=== PATIENT | female | born 1950 | race Caucasian/White ===

== ENCOUNTER → 2019-03-04 10:54 | Outpatient (BNVA) | payer MEDICARE, OTHER, SELFPAY | PROVIDERS: PCP Nurse Practitioner Family; Visit Provider Internal Medicine Rheumatology | DX: M05.9 Rheumatoid arthritis with rheumatoid factor, unspecified (principal); Z79.899 Other long term (current) drug therapy; M85.80 Other specified disorders of bone density and structure, unspecified site | CPT/HCPCS: 36415; 80076; 82565; 85025; 85651; 86140; 99214 ==

== ENCOUNTER → 2019-05-05 10:28 | Outpatient (BNVA) | payer MEDICARE, OTHER, SELFPAY | PROVIDERS: PCP Nurse Practitioner Family; Visit Provider Internal Medicine Rheumatology | DX: M05.9 Rheumatoid arthritis with rheumatoid factor, unspecified (principal); Z79.899 Other long term (current) drug therapy; Z79.52 Long term (current) use of systemic steroids; M06.9 Rheumatoid arthritis, unspecified | CPT/HCPCS: 36415; 80076; 82565; 85025; 85651; 86140; 99214 ==

== ENCOUNTER → 2019-05-05 11:46 | Outpatient (BNVA) | payer MEDICARE, OTHER, SELFPAY | PROVIDERS: PCP Nurse Practitioner Family; Visit Provider Internal Medicine Rheumatology | DX: Z79.899 Other long term (current) drug therapy (principal); M06.9 Rheumatoid arthritis, unspecified; M05.9 Rheumatoid arthritis with rheumatoid factor, unspecified | CPT/HCPCS: 85025 ==

== ENCOUNTER → 2019-08-06 08:53 | Outpatient (BNVA) | payer MEDICARE, OTHER, SELFPAY | PROVIDERS: PCP Nurse Practitioner Family; Visit Provider Internal Medicine Rheumatology | DX: Z79.899 Other long term (current) drug therapy (principal) | CPT/HCPCS: 36415; 80076; 82565; 85025; 85651; 86140 ==

== ENCOUNTER → 2019-08-12 13:13 | Outpatient (BNVA) | payer MEDICARE, OTHER, SELFPAY | PROVIDERS: PCP Nurse Practitioner Family; Visit Provider Internal Medicine Rheumatology | DX: M05.79 Rheumatoid arthritis with rheumatoid factor of multiple sites without organ or systems involvement (principal); M85.80 Other specified disorders of bone density and structure, unspecified site; Z79.899 Other long term (current) drug therapy | CPT/HCPCS: 99214 ==

== ENCOUNTER → 2019-12-09 09:45 | Outpatient (BNVA) | payer MEDICARE, OTHER, SELFPAY | PROVIDERS: PCP Registered Nurse | DX: Z79.899 Other long term (current) drug therapy (principal) | CPT/HCPCS: 36415; 80076; 82565; 85025; 85651; 86140 ==

== ENCOUNTER → 2020-01-11 15:22 | Outpatient (BNVA) | payer MEDICARE, SELFPAY | PROVIDERS: PCP Registered Nurse; Visit Provider Internal Medicine Rheumatology | DX: M05.79 Rheumatoid arthritis with rheumatoid factor of multiple sites without organ or systems involvement (principal); M85.80 Other specified disorders of bone density and structure, unspecified site; Z87.891 Personal history of nicotine dependence; Z79.899 Other long term (current) drug therapy | CPT/HCPCS: 99214 ==

== ENCOUNTER → 2020-05-18 12:55 | Outpatient (BNVA) | payer MEDICARE, SELFPAY | PROVIDERS: PCP Registered Nurse; Visit Provider Internal Medicine Rheumatology | DX: M05.79 Rheumatoid arthritis with rheumatoid factor of multiple sites without organ or systems involvement (principal); Z79.899 Other long term (current) drug therapy | CPT/HCPCS: 36415; 80076; 82565; 85025; 86140 ==

== ENCOUNTER → 2020-05-25 13:47 | Outpatient (BNVA) | payer MEDICARE, SELFPAY | PROVIDERS: PCP Registered Nurse; Visit Provider Internal Medicine Rheumatology | DX: M05.79 Rheumatoid arthritis with rheumatoid factor of multiple sites without organ or systems involvement (principal); Z79.899 Other long term (current) drug therapy; M85.80 Other specified disorders of bone density and structure, unspecified site; B02.9 Zoster without complications; Z87.891 Personal history of nicotine dependence | CPT/HCPCS: 99214 ==

== ENCOUNTER → 2020-08-22 10:42 | Outpatient (BNVA) | payer MEDICARE, SELFPAY | PROVIDERS: PCP Registered Nurse; Visit Provider Internal Medicine Rheumatology | DX: Z79.899 Other long term (current) drug therapy (principal); M05.79 Rheumatoid arthritis with rheumatoid factor of multiple sites without organ or systems involvement | CPT/HCPCS: 36415; 80076; 82565; 85025; 86140 ==

== ENCOUNTER 2020-09-01 10:37 | Outpatient (CLI) | payer MEDICARE, SELFPAY ==
--- NOTE | 2020-09-01 10:44 | USCV_ITS ---
Nany Wilhelm Age: 70 Gender: F : 1950 Exam Date: 09/01/2020 10:58 Ordering Phys: Eliane Damon CONTRACT ADMINISTRATOR Technologist: Elizabeth Tapia [place] [facility] [place]: acute embolism and thrombosis, unspecified HISTORY: History LLE DVT 2014. Patient has been on Eloquist since 2014. LLE pain in area of popliteal fossa PROCEDURES: Venous duplex imaging was performed in only the left lower extremity. In addition, the posterior tibial and peroneal trunk were evaluated. On the left side, the common femoral, superficial femoral, profunda femoral, popliteal, posterior tibial, greater saphenous veins, and the peroneal trunk were identified and interrogated in the standard fashion. These veins were found to be easily compressible with spontaneous blood flow. FINDINGS: No DVT or superficial thrombus in LLE. A cystic - like structure is seen in the left medial popliteal fossa area with hyperochic strands within. No color flow seen in structure. Collection measures 2.5 cm. CONCLUSIONS No DVT left lower extremity. Left popliteal fossa Villanueva's cyst. Dr. Jennifer Russ DO (Electronically Signed) Final Date: 01 September 2020 11:37 S
== END 2020-09-01 10:38 | disposition home or self-care (01) ==
PROVIDERS: PCP Registered Nurse; Visit Provider Registered Nurse
DX: M05.79 Rheumatoid arthritis with rheumatoid factor of multiple sites without organ or systems involvement (principal); M85.80 Other specified disorders of bone density and structure, unspecified site; M71.22 Synovial cyst of popliteal space [Baker], left knee; Z79.899 Other long term (current) drug therapy; Z71.89 Other specified counseling; I82.409 Acute embolism and thrombosis of unspecified deep veins of unspecified lower extremity
CPT/HCPCS: 20610; 93971; 99214; J1030

== ENCOUNTER → 2020-12-09 10:43 | Outpatient (BNVA) | payer MEDICARE, OTHER, SELFPAY | PROVIDERS: PCP Registered Nurse; Visit Provider Internal Medicine Rheumatology | DX: M05.79 Rheumatoid arthritis with rheumatoid factor of multiple sites without organ or systems involvement (principal); Z79.899 Other long term (current) drug therapy | CPT/HCPCS: 80076; 82565; 85025; 86140 ==

== ENCOUNTER → 2020-12-21 12:56 | Outpatient (BNVA) | payer MEDICARE, OTHER, SELFPAY | PROVIDERS: PCP Registered Nurse; Visit Provider Internal Medicine Rheumatology | DX: M05.79 Rheumatoid arthritis with rheumatoid factor of multiple sites without organ or systems involvement (principal); M85.80 Other specified disorders of bone density and structure, unspecified site; Z79.899 Other long term (current) drug therapy; Z79.52 Long term (current) use of systemic steroids; M71.20 Synovial cyst of popliteal space [Baker], unspecified knee; Z71.89 Other specified counseling | CPT/HCPCS: 99214 ==

== ENCOUNTER 2021-06-22 12:04 | Outpatient (CLI) | payer MEDICARE, OTHER, SELFPAY ==
[2021-06-22 13:21] LABS: Basophils % 0.6 %; Eosinophils # 0.2 10^3/uL (0.0-0.8); Hematocrit 44.7 % (37.0-47.0); Hemoglobin 14.4 g/dL (11.5-15.3); Lymphocytes # 2.4 10^3/uL (0.8-4.8); Lymphocytes % 34.5 %; Mean Corpuscular HGB Conc 32.2 g/dL (30.0-36.0); Mean Corpuscular Hemoglobin 30.1 pg (28.0-34.0); Mean Corpuscular Volume 93.5 fl (81-99); Mean Platelet Volume 10.6 fL (7.4-10.4); Monocytes # 0.6 10^3/uL (0.2-0.9); Monocytes % 8.5 %; Neutrophils # 3.78 10^3/uL (1.8-7.7); Neutrophils % 53.3 %; Nucleated Red Blood Cells % 0 %; Platelet Count 258 10^3/cmm (130-400); Red Blood Count 4.78 10^6/uL (4.1-5.3); Red Cell Distribution Width 14.4 % (12.1-15.1); White Blood Count 7.1 10^3/uL (4.0-10.0)
[2021-06-22 13:36] LABS: Alanine Aminotransferase 12 U/L (0-33); Alkaline Phosphatase 85 IU/L (35-105); Aspartate Amino Transferase 23 U/L (0-32); C Reactive Protein 3.6 mg/L (0.0-4.9); Globulin 3.9 g/dL (1.3-4.6); Glomerular Filtration Rate 71.1 mL/min (90-130); Total Bilirubin 0.2 mg/dL (0.15-1.2); Total Protein 7.9 g/dL (6.6-8.7)
== END 2021-06-22 12:05 | disposition home or self-care (01) ==
LOC: LAB 12:09
PROVIDERS: PCP Registered Nurse; Visit Provider Internal Medicine Rheumatology
DX: M05.9 Rheumatoid arthritis with rheumatoid factor, unspecified (principal); Z79.899 Other long term (current) drug therapy; M05.79 Rheumatoid arthritis with rheumatoid factor of multiple sites without organ or systems involvement; M85.80 Other specified disorders of bone density and structure, unspecified site
CPT/HCPCS: 36415; 80076; 82565; 85025; 86140; 99214

== ENCOUNTER 2021-07-17 19:46 | Emergency (ER) | payer MEDICARE, OTHER, SELFPAY ==
[2021-07-17 19:51] VITALS: BP 145/79; PULSE 83; RESP 18; TEMP 36.7; O2SAT 97; BMI 30.1
--- NOTE | 2021-07-17 19:52 | ED_ITS ---
HPI - Extremity Injury (Lower) General: Chief Complaint: Extremity Injury, Lower Stated Complaint: L leg pain. Had blood clots Time Seen by Provider: 07/17/21 19:52 History of Present Illness: 71-year-old female comes in today with complaints of left posterior knee pain with increased pain with standing. Patient reports pain for the last 3 days worse today. Patient has a history of DVT, rheumatoid arthritis, and Villanueva's cyst. Patient appears in mild pain at rest. Patient is unable to bear weight on the knee due to pain. Review of Systems General: Reports: 10 or more systems reviewed and unremarkable except in HPI and below Card: Denies: chest pain Resp: Denies: dyspnea Musc: Reports: extremity pain and joint pain PFSH ED PFSH: Medical History Villanueva's cyst of knee High risk medication use Immunization counseling Rheumatoid arthritis Rheumatoid arthritis with rheumatoid factor Seropositive rheumatoid arthritis Seropositive rheumatoid arthritis of multiple joints Shingles Surgical History History of cholecystectomy Hx of hysterectomy Family History Father Rheumatoid arthritis Grandfather Rheumatoid arthritis Grandmother Rheumatoid arthritis Family/Other Rheumatoid arthritis Denies family history of Diabetes Lupus CAD (coronary artery disease) Family history of premature coronary artery disease Hypertension Stroke Social History Smoking and tobacco status: never smoked Alcohol intake: never History of recent travel: No Physical Exam Const: COMMON NORMALS: alert Neck/C-Spine: COMMON NORMALS: full ROM Resp: COMMON NORMALS: normal respiratory effort Cardio: COMMON NORMALS: regular rate RATE: regular rate Extremity: LEFT LOWER EXTREMITY: Yes knee joint (Posterior tenderness, no redness or swelling) Left knee: Yes inspection, Yes palpation, Yes ROM and Yes neurovascular exam and Yes lower leg (Positive Homans' sign, no swelling or redness) Left lower leg: Yes inspection, Yes palpation and Yes neurovascular exam Neuro: SENSORIUM/ORIENTATION: Yes alert Skin: COMMON NORMALS: no rashes or lesions noted GENERAL SKIN EXAM: no rashes or lesions noted Course Vital Signs: Vital signs: Vital Signs Temperature 98.1 F 07/17/21 20:00 Pulse Rate 83 07/17/21 20:00 Respiratory Rate 16 07/17/21 20:00 Blood Pressure 144/79 07/17/21 20:00 Pulse Oximetry 97 07/17/21 20:00 MDM - Extremity Injury (Lower) Medical Decision Making 71-year-old female comes in today with left knee pain. Patient reports the pain is posteriorly. Pain increases with weightbearing. On exam minimal to no swelling. Normal range of motion with nonweightbearing passive exercise. Pain exacerbates with weightbearing. Distal pulses and sensation are intact. Patient had increased calf pain with Homans' sign. Differential diagnosis includes but not limited to tendinitis, degenerative joint disease, Villanueva's cyst, DVT. Ultrasound of the extremity was negative for DVT. I suspect patient probably has a meniscal injury secondary degenerative joint disease. Recommend follow-up with orthopedics for further evaluation and recommendation of treatment. Patient was recommended continue with acetaminophen ibuprofen for pain and her prescription for hydrocodone for severe pain. Discharge Plan Discharge Patient Disposition: Home Clinical Impression: Posterior left knee pain Condition: Stable Prescriptions: No Action lidocaine 5 % adhesive patch,medicated 3 patch topical DAILY Qty: 15 1RF Rx Instructions: leave on most painful area for up to 12 hrs calcium carbonate [Calcium 600] 600 mg calcium (1,500 mg) tablet 600 mg PO BID 0RF omeprazole 40 mg capsule,delayed release(DR/EC) 40 mg PO DAILY 0RF cholecalciferol (vitamin D3) 50 mcg (2,000 unit) tablet 2,000 unit PO .daily 90 Days Qty: 90 1RF folic acid 1 mg tablet 1 mg PO DAILY Qty: 90 3RF methotrexate sodium 2.5 mg tablet See Rx Instructions PO .every 7 days 30 Days Qty: 35 3RF Rx Instructions: take 7 tabs on same day once a week PO .every 7 days; benzonatate 100 mg capsule 100 mg PO BID PRN (Reason: cough) 7 Days Qty: 14 0RF Xarelto 20 mg tablet See Rx Instructions .ROUTE .COMPLEX Qty: 90 0RF Dose Instruction: TAKE 1 TABLET BY MOUTH DAILY Rx Instructions: TAKE 1 TABLET BY MOUTH DAILY Enbrel SureClick 50 mg/mL (1 mL) pen injector 50 mg SUBCUT Q7D Qty: 4 3RF alendronate 70 mg tablet See Rx Instructions .ROUTE .COMPLEX Qty: 12 0RF Dose Instruction: TAKE 1 TABLET BY MOUTH EVERY 7 DAYS Rx Instructions: TAKE 1 TABLET BY MOUTH EVERY 7 DAYS Discharge Orders: Discharge ED (Routine); Ordered 07/17/21 Ordered By: Galen Cannon Referrals: Eliane Damon FNP [Primary Care Provider] - Discharge Diet: Usual diet Discharge Activity: Increase activity as tolerated Patient Instructions: Knee Pain (ED) Activity Restrictions/Additional Instructions: Continue with routine care. Activity as tolerated. Use walker to assist with ambulation. Return to ER for new concerns. Follow-up with primary care for further instruction. Case management will contact you regarding orthopedic follow-up appointment. Coding Level of Care Code ED Storm Window Installer for Marian Fwd Exam Detailed
--- NOTE | 2021-07-17 19:56 | USR_ITS ---
PROCEDURE INFORMATION: Exam: US Duplex Left Lower Extremity Veins, Limited Exam date and time: 07/17/2021 8:21 PM Age: 71 years old Clinical indication: Pain; Leg, lower; Left; Additional info: R/O dvt, posterior knee pain TECHNIQUE: Imaging protocol: Real-time Duplex ultrasound of the Left Lower Extremity with 2-D black scale, color Doppler flow and spectral waveform analysis with image documentation. Limited exam focused on the left lower extremity veins. COMPARISON: CR (LOW EXM, ) 07/17/2021 8:12 PM FINDINGS: Left deep veins: Unremarkable. The common femoral, femoral, proximal profunda femoral and popliteal veins are patent without thrombus. Normal Doppler waveforms. Normal compressibility and/or augmentation response. Left superficial veins: Unremarkable. Saphenofemoral junction is patent without thrombus. Soft tissues: Unremarkable. US/CV venous duplex [facility] [id number] IMPRESSION: No evidence of deep vein thrombosis.
--- NOTE | 2021-07-17 19:57 | XRR_ITS ---
PROCEDURE INFORMATION: Exam: XR Left Knee Exam date and time: 07/17/2021 8:12 PM Age: 71 years old Clinical indication: Pain; Knee; Left; Additional info: Knee pain TECHNIQUE: Imaging protocol: XR Left knee. Views: 3 views. COMPARISON: CR Foot 3 views, LEFT* [id number] 01/08/2019 2:59 PM FINDINGS: Bones/joints: Asymmetric joint space narrowing at lateral compartment. Small joint effusion. No evident fracture or dislocation. Soft tissues: Normal. XR/XR knee LT 3V* [id number] IMPRESSION: Degenerative joint space narrowing lateral compartment. Small joint effusion.
[2021-07-17 20:00] VITALS: BP 144/79; PULSE 83; RESP 16; TEMP 36.7; O2SAT 97
--- NOTE | 2021-07-20 08:28 | DCPLANNER ---
Addendum entered by Crista Whitehead 07/23/21 09:47: marketing assistant manager was told that patient is being seen in [place]. Original Note: marketing assistant manager had message to schedule a follow up appointment for patient with ortho. marketing assistant manager sent patients information to the front office staff at ortho. Patients information will be printed and reviewed. Clinic will call patient with appointment information.
== END 2021-07-17 21:29 | disposition home or self-care (01) ==
PROVIDERS: Emergency Provider Nurse Practitioner Family; PCP Registered Nurse
DX: M79.605 Pain in left leg (principal); M25.562 Pain in left knee; Z86.718 Personal history of other venous thrombosis and embolism
CPT/HCPCS: 73562; 93971; 99283

== ENCOUNTER → 2021-11-14 09:49 | Outpatient (BNVA) | payer MEDICARE, OTHER, SELFPAY | PROVIDERS: PCP Registered Nurse; Visit Provider Internal Medicine Rheumatology | DX: M05.79 Rheumatoid arthritis with rheumatoid factor of multiple sites without organ or systems involvement (principal); Z79.899 Other long term (current) drug therapy | CPT/HCPCS: 80076; 82565; 85025; 86140 ==

== ENCOUNTER → 2021-11-28 12:49 | Outpatient (BNVA) | payer MEDICARE, OTHER, SELFPAY | PROVIDERS: PCP Registered Nurse; Visit Provider Internal Medicine Rheumatology | DX: M05.79 Rheumatoid arthritis with rheumatoid factor of multiple sites without organ or systems involvement (principal); Z79.899 Other long term (current) drug therapy; M85.80 Other specified disorders of bone density and structure, unspecified site; Z71.89 Other specified counseling; M17.12 Unilateral primary osteoarthritis, left knee; Z92.241 Personal history of systemic steroid therapy | CPT/HCPCS: 20610; 99214; J1030 ==

== ENCOUNTER 2022-01-25 12:25 | Outpatient (CLI) | payer MEDICARE, OTHER, SELFPAY ==
--- NOTE | 2022-01-25 12:33 | MR_ITS ---
WS: [id number] MRI LEFT KNEE HISTORY: UNILATERAL PRIMARY OSTEOARTHRITIS, L KNEE COMPARISON: Radiograph 07/17/2021 Anterior cruciate ligament: Intact. Posterior cruciate ligament: Intact. Medial collateral ligament: Intact. Posterior lateral corner structures: Increased edema within the lateral supporting structures. There is no full-thickness tear. Medial menisci: Intact. Normal signal, size and shape. Lateral meniscus: Anterior and posterior horns are abnormal. There is increased signal throughout the horns consistent with complex tears. The meniscus is extruded laterally and extends just above the joint line adjacent to the lateral hernán ateral ligament. Extensor mechanism: Distal quadriceps tendon and patellar tendons are intact. Fluid and soft tissue: Moderate joint effusion. Mild diffuse soft tissue edema. Moderate-sized Villanueva' s cyst. There is a small cyst extending along the popliteus tendon measuring 9 mm. Moderate-sized lob ulated Villanueva's cyst. There is a separate cystic component extending more medial to the semimembranosu s tendon. This may be an additional component of the Villanueva's cyst or ganglion as it does follow the s emimembranosus tendon. Osseous and articular structures: Patellofemoral compartment: Mild lateral subluxation of the patella with mild diffuse chondromalacia. There is also loss of normal cartilage along the femoral component of the joint spaces. Medial compartment: Mild narrowing of the medial compartment. Moderate thinning and fissuring of cart ilage. No marrow edema. Lateral compartment: Severe narrowing of the lateral compartment with bone upon bone and loss of cart ilage. Extruded meniscus. There is a small amount of edema in the lateral tibial plateau. There are scattered areas of variable signal within the distal femur proximal tibia which need furthe r evaluation. This may be secondary to small bone infarcts or metabolic changes. Due to the extensive nature recommend bone scan imaging to exclude metastatic disease. MR/MR knee LT wo con* [id number] IMPRESSION: 1. Severe lateral joint compartment narrowing with complete loss of cartilage and the extruded meniscus. 2. Complex tears involving the anterior and posterior horns of the lateral men iscus. Lateral meniscus is extruded from the joint line extends cephalad. 3. Large Villanueva's cyst. There is an additional cyst along the semimembranous te ndon which is probably a ganglion. This could be a meniscal cyst or extension o f the Villanueva's cyst. 4. Mild lateral subluxation of patella with diffuse mild chondromalacia. 5. Mild narrowing medial compartment with moderate thinning and fissuring of t he cartilage. 6. Variable signal within the visualized femur and tibia. Recommend bone scan imaging to exclude metastatic bone disease.
== END 2022-01-25 12:26 | disposition home or self-care (01) ==
LOC: RAD 12:26
PROVIDERS: PCP Registered Nurse; Visit Provider Nurse Practitioner Adult Health
DX: M17.12 Unilateral primary osteoarthritis, left knee (principal); S83.272A Complex tear of lateral meniscus, current injury, left knee, initial encounter; M71.22 Synovial cyst of popliteal space [Baker], left knee; S83.012A Lateral subluxation of left patella, initial encounter; X58.XXXA Exposure to other specified factors, initial encounter; M22.42 Chondromalacia patellae, left knee
CPT/HCPCS: 73721

== ENCOUNTER 2022-03-02 11:06 | Outpatient (CLI) | payer MEDICARE, OTHER, SELFPAY ==
[2022-03-02 14:15] LABS: Basophils % 0.4 %; Eosinophils # 0.2 10^3/uL (0.0-0.8); Eosinophils % 2.8 %; Hematocrit 40.6 % (37.0-47.0); Hemoglobin 12.9 g/dL (11.5-15.3); Lymphocytes # 2.1 10^3/uL (0.8-4.8); Mean Corpuscular HGB Conc 31.8 g/dL (30.0-36.0); Mean Corpuscular Hemoglobin 30.4 pg (28.0-34.0); Mean Corpuscular Volume 95.8 fl (81-99); Mean Platelet Volume 10.4 fL (7.4-10.4); Monocytes # 0.5 10^3/uL (0.2-0.9); Monocytes % 7.3 %; Neutrophils # 4.04 10^3/uL (1.8-7.7); Neutrophils % 59.2 %; Nucleated Red Blood Cells % 0 %; Platelet Count 222 10^3/cmm (130-400); Red Blood Count 4.24 10^6/uL (4.1-5.3); Red Cell Distribution Width 14.2 % (12.1-15.1); White Blood Count 6.8 10^3/uL (4.0-10.0)
[2022-03-02 14:40] LABS: Alanine Aminotransferase 7 U/L (0-33); Albumin Level 3.7 g/dL (3.5-5.2); Alkaline Phosphatase 86 U/L (35-105); Aspartate Amino Transferase 14 U/L (0-32); Globulin 3.4 g/dL (1.3-4.6); Glomerular Filtration Rate 98.8 mL/min (90-130); Total Bilirubin 0.2 mg/dL (0.15-1.2); Total Protein 7.1 g/dL (6.6-8.7)
[2022-03-02 14:41] LABS: INR 0.97 (0.8-1.2)
[2022-03-02 14:43] LABS: Partial Thromboplastin Time 26.4 SECONDS (23.9-36.7)
[2022-03-02 14:56] LABS: Immunoglobulin IGG 1249 mg/dL (700-1600); Immunoglobulin IGM 220 mg/dL (40-230)
== END 2022-03-02 11:07 | disposition home or self-care (01) ==
LOC: LAB 11:13
PROVIDERS: PCP Registered Nurse; Visit Provider Internal Medicine Rheumatology
DX: M05.79 Rheumatoid arthritis with rheumatoid factor of multiple sites without organ or systems involvement (principal); Z79.899 Other long term (current) drug therapy
CPT/HCPCS: 36415; 80076; 81241; 82565; 82784; 85025; 85300; 85301; 85303; 85306; 85610; 85613; 85730; 86140

== ENCOUNTER 2022-06-01 12:05 | Outpatient (CLI) | payer MEDICARE, OTHER, SELFPAY ==
[2022-06-01 12:50] LABS: Basophils % 0.2 %; Eosinophils # 0.2 10^3/uL (0.0-0.8); Eosinophils % 1.9 %; Hematocrit 42.5 % (37.0-47.0); Hemoglobin 13.4 g/dL (11.5-15.3); Lymphocytes # 1.9 10^3/uL (0.8-4.8); Mean Corpuscular HGB Conc 31.5 g/dL (30.0-36.0); Mean Corpuscular Hemoglobin 29.7 pg (28.0-34.0); Mean Corpuscular Volume 94.2 fl (81-99); Mean Platelet Volume 9.3 fL (7.4-10.4); Monocytes # 0.4 10^3/uL (0.2-0.9); Monocytes % 3.6 %; Neutrophils # 7.17 10^3/uL (1.8-7.7); Neutrophils % 73.8 %; Nucleated Red Blood Cells % 0 %; Platelet Count 266 10^3/cmm (130-400); Red Blood Count 4.51 10^6/uL (4.1-5.3); Red Cell Distribution Width 14.8 % (12.1-15.1); White Blood Count 9.7 10^3/uL (4.0-10.0)
[2022-06-01 13:10] LABS: Alanine Aminotransferase 9 U/L (0-33); Albumin Level 3.7 g/dL (3.5-5.2); Alkaline Phosphatase 79 U/L (35-105); Aspartate Amino Transferase 18 U/L (0-32); C Reactive Protein 5.8 mg/L (0.0-4.9); Globulin 3.5 g/dL (1.3-4.6); Glomerular Filtration Rate 82.7 mL/min (90-130); Total Bilirubin 0.2 mg/dL (0.15-1.2); Total Protein 7.2 g/dL (6.6-8.7)
== END 2022-06-01 12:06 | disposition home or self-care (01) ==
LOC: LAB 12:28
PROVIDERS: PCP Registered Nurse; Visit Provider Internal Medicine Rheumatology
DX: M05.79 Rheumatoid arthritis with rheumatoid factor of multiple sites without organ or systems involvement (principal); Z79.899 Other long term (current) drug therapy
CPT/HCPCS: 36415; 80076; 82565; 85025; 86140

== ENCOUNTER → 2022-06-12 12:27 | Outpatient (BNVA) | payer MEDICARE, OTHER, SELFPAY | PROVIDERS: PCP Registered Nurse; Visit Provider Internal Medicine Rheumatology | DX: M05.79 Rheumatoid arthritis with rheumatoid factor of multiple sites without organ or systems involvement (principal); Z79.899 Other long term (current) drug therapy; M85.80 Other specified disorders of bone density and structure, unspecified site; Z71.89 Other specified counseling | CPT/HCPCS: 99214 ==

== ENCOUNTER → 2022-09-19 10:21 | Outpatient (BNVA) | payer MEDICARE, OTHER, SELFPAY | PROVIDERS: PCP Registered Nurse; Visit Provider Registered Nurse | DX: Z13.1 Encounter for screening for diabetes mellitus (principal) | CPT/HCPCS: 80053; 80061; 83036; 85025 ==

== ENCOUNTER → 2022-10-09 12:25 | Outpatient (BNVA) | payer MEDICARE, OTHER, SELFPAY | PROVIDERS: PCP Registered Nurse; Visit Provider Internal Medicine Rheumatology | DX: M05.79 Rheumatoid arthritis with rheumatoid factor of multiple sites without organ or systems involvement (principal); Z79.899 Other long term (current) drug therapy; M85.80 Other specified disorders of bone density and structure, unspecified site; Z71.89 Other specified counseling; Z96.652 Presence of left artificial knee joint; Z92.241 Personal history of systemic steroid therapy | CPT/HCPCS: 99214 ==

== ENCOUNTER → 2022-11-01 13:29 | Outpatient (BNVA) | payer MEDICARE, OTHER, SELFPAY | PROVIDERS: Visit Provider Internal Medicine Rheumatology | DX: M05.79 Rheumatoid arthritis with rheumatoid factor of multiple sites without organ or systems involvement (principal); Z79.899 Other long term (current) drug therapy; M85.80 Other specified disorders of bone density and structure, unspecified site; Z71.89 Other specified counseling | CPT/HCPCS: 99214 ==

== ENCOUNTER → 2023-04-09 12:41 | Outpatient (BNVA) | payer MEDICARE, OTHER, SELFPAY | PROVIDERS: PCP Family Medicine; Visit Provider Internal Medicine Rheumatology | DX: M05.79 Rheumatoid arthritis with rheumatoid factor of multiple sites without organ or systems involvement; Z79.899 Other long term (current) drug therapy; M85.80 Other specified disorders of bone density and structure, unspecified site; Z71.89 Other specified counseling | CPT/HCPCS: 36415; 80076; 82565; 85025; 86140; 99214 ==

== ENCOUNTER 2023-04-18 14:45 | Outpatient (CLI) | payer MEDICARE, OTHER, SELFPAY ==
--- NOTE | 2023-04-18 15:00 | XR_ITS ---
WS: [id number] SCREENING DEXA SCAN [email or web address] CLINICAL INFORMATION: M81.0 - Age-related osteoporosis without current patholog... COMPARISON: 2019 FINDINGS: The L1-L4 bone mineral density measures 0.971 g/cm2. This corresponds to a T score score of -1.7 and Z score of -0.5. Left femoral neck bone mineral density measures 0.945 g/cm2. This corresponds to a T score of -0.5 an d Z score of 0.7. Right femoral neck bone mineral density measures 0.999 g/cm2. This corresponds to a T score -0.1of an d Z score of 1.1. Mean femoral neck bone mineral density measures 0.972 g/cm2. This corresponds to a T score of -0.3 an d Z score of 0.9. IMPRESSION: Osteopenia lumbar spine. Normal bone mineralization femoral necks. Patient's FRAX calculated 10 year probability for major osteoporotic fracture is 12.8% and osteoporot ic hip fracture is 2.2%. Bone mineral density in the lumbar spine increased 9.0% Bone mineral density in the femoral necks increased 3.8%
== END 2023-04-18 14:46 | disposition home or self-care (01) ==
LOC: RAD 14:45
PROVIDERS: PCP Family Medicine; Visit Provider Internal Medicine Rheumatology
DX: M81.0 Age-related osteoporosis without current pathological fracture (principal)
CPT/HCPCS: 77080

== ENCOUNTER 2023-05-25 16:55 | Emergency (ER) | payer MEDICARE, OTHER, SELFPAY ==
[2023-05-25 17:00] VITALS: BP 126/66; PULSE 72; RESP 18; TEMP 36.7; O2SAT 98; BMI 29.2
--- NOTE | 2023-05-25 17:18 | USR_ITS ---
PROCEDURE INFORMATION: Exam: US Duplex Right Lower Extremity Veins, Limited Exam date and time: 05/25/2023 5:38 PM Age: 73 years old Clinical indication: Pain; Leg, lower; Right; Additional info: Leg pain TECHNIQUE: Imaging protocol: Real-time duplex ultrasound of the right extremity with 2-D black scale, color Doppler flow and spectral waveform analysis including responses to compression and other maneuvers (when performed) with image documentation. Limited exam was focused on the right lower extremity veins. COMPARISON: No relevant prior studies available. FINDINGS: Right deep veins: Unremarkable. The common femoral, femoral, proximal profunda femoral, popliteal and visualized calf veins are patent without thrombus. Normal Doppler waveforms. Normal compressibility and/or augmentation response. Superficial veins: Greater saphenous vein at the saphenofemoral junction is patent without thrombus. Soft tissues: Unremarkable. US/[place] [id number] IMPRESSION: No sonographic evidence of deep vein thrombosis.
--- NOTE | 2023-05-25 17:24 | W.ED.EXTPRO ---
Documented by User: IVON Rodriguez 05/25/23 19:08 HPI - Extremity Problem General: Chief complaint: Extremity Problem,Nontraumatic Stated complaint: right leg pain Time Seen by Provider: 05/25/23 17:06 Source: patient Mode of arrival: ambulatory Limitations: no limitations History of Present Illness: Patient is a 73-year-old female presenting to the emergency department complaining of atraumatic right leg pain onset this afternoon. Patient notes she was reportedly walking normally when she developed sudden onset of diffuse right leg pain she reports history of DVT in the left leg, but states this feels a little different. She has a history of rheumatoid arthritis and takes methotrexate. She is unable to report to me where the pain is worse, but does state that she feels like it aggregates in the knee occasionally. She notes the pain is constantly worsening and is a sharp 10/10 pain she took Tylenol at home as well as a prednisone, but notes no relief. She denies any swelling, redness, bruising, or any other symptoms. MD Complaint: extremity pain Onset (ago): hour(s) Location: right and lower extremity Severity scale (1-10): 10 Quality: sharp Relieving factors: nothing Exacerbating factors: range of motion, weight bearing and walking Associated symptoms: Deny chest pain, fever(s) or rash Review of Systems General: Reports: 10 or more systems reviewed and unremarkable except in HPI and below Const: Denies: fever(s), chills or fatigue Eyes: Denies: change in vision ENMT: Denies: throat pain, ear or mastoid pain or nasal discharge Card: Denies: chest pain, palpitations, swelling of feet/ankles or lightheadedness Resp: Denies: dyspnea, productive cough or wheezing GI: Denies: abdominal pain, nausea, vomiting, diarrhea or constipation : Denies: flank pain, difficulty voiding, dysuria or urinary frequency Musc: Reports: extremity pain (Right lower extremity); Denies: neck pain, back pain, extremity swelling, joint pain, joint swelling, joint redness or limited range of motion Skin/Breast: Denies: rash Neuro: Denies: headache(s), numbness in extremities or weakness in extremities PFS ED PFSH: Medical History Villanueva's cyst of knee Shingles Immunization counseling Rheumatoid arthritis with rheumatoid factor Seropositive rheumatoid arthritis of multiple joints Seropositive rheumatoid arthritis High risk medication use Rheumatoid arthritis Surgical History Hx of hysterectomy History of cholecystectomy Family History Father Rheumatoid arthritis Grandfather Rheumatoid arthritis Grandmother Rheumatoid arthritis Family/Other Rheumatoid arthritis Denies family history of Diabetes Lupus CAD (coronary artery disease) Family history of premature coronary artery disease Hypertension Stroke Social History Smoking and tobacco/nicotine status: never used tobacco/nicotine Alcohol intake: never Substance/Drug Use: never Physical Exam Const: COMMON NORMALS: no acute distress, patient oriented x3 and no limitations GENERAL APPEARANCE: cooperative, comfortable and well developed ORIENTATION/CONSCIOUSNESS: Yes awake, Yes oriented to person, Yes oriented to place and Yes oriented to time HENMT: COMMON NORMALS: normocephalic, atraumatic and hearing grossly normal bilaterally HEAD & SCALP: normocephalic and atraumatic Eye: COMMON NORMALS: Equal, round and reactive pupils present, EOMs intact bilaterally and conjunctivae normal CONJUNCTIVA: Yes conjunctivae normal PUPIL: Yes Equal, round and reactive pupils present Neck/C-Spine: COMMON NORMALS: full ROM, supple and no JVD Resp: COMMON NORMALS: normal respiratory effort, No retractions, No use of accessory muscles and clear to auscultation bilaterally AUSCULTATION: clear to auscultation bilaterally Cardio: COMMON NORMALS: no JVD, regular rate, regular rhythm, No clicks present (Cardio), No murmurs present (Cardio) and No rub (Cardio) RATE: regular rate RHYTHM: regular rhythm Extremity: COMMON NORMALS: normal to inspection, full ROM and capillary refill normal NARRATIVE EXTREMITY EXAM: No edema noted. No erythema or bruising. Diffusely tender to palpation about the right thigh, knee, anteromedial mendes, and ankle. Negative Homans. No calf tenderness. No palpable cord. Distal pulses intact bilaterally. Neuro: COMMON NORMALS: patient oriented x3, moves all extremities, no focal motor deficits and no sensory deficits noted SENSORIUM/ORIENTATION: Yes oriented to person, Yes oriented to place and Yes oriented to time Psych: COMMON NORMALS: mental status grossly normal and Normal thought process present THOUGHT PROCESS: Normal thought process present Skin: COMMON NORMALS: no rashes or lesions noted GENERAL SKIN EXAM: no rashes or lesions noted Course Vital Signs: Vital signs: Vital Signs Temperature 98.1 F 05/25/23 19:13 Pulse Rate 68 05/25/23 19:13 Respiratory Rate 16 05/25/23 19:13 Blood Pressure 125/51 05/25/23 19:13 Pulse Oximetry 98 05/25/23 19:13 Oxygen Delivery Me thod Room Air 05/25/23 17:00 MDM - Extremity (Nontraumatic) Medical Decision Making This patient seen and evaluated in the emergency department today due to sudden onset of nontraumatic right leg pain. On arrival patient complaining of severe pain diffusely throughout the leg, stating it was worse in the knee. Vitals normal. Examination ultimately unremarkable, however she was diffusely tender to palpation of the right knee with proximal and distal extension. No skin changes, calf tenderness, popliteal space tenderness, palpable cord, and a negative Homans' sign. However, I ordered venous ultrasound to rule out DVT as patient noted she had a history, but this was negative. Subsequent x-ray of the knee on the right was also negative. I had previously given the patient a shot of Toradol, and upon recheck she states that she is essentially pain-free. I believe the patient's pain could potentially be due to to a muscle strain, however differential includes ruptured Villanueva's cyst, as she has a history of this on the left side. I will send her home with prescription for Toradol to take by mouth, and informed her that if she continues to have pain she can follow-up with her primary care to schedule an MRI. Return precautions are given and patient agrees with discharge home. Lab Data Radiology Impressions Venous Duplex 05/25/23 17:18 IMPRESSION: No sonographic evidence of deep vein thrombosis. Knee X-Ray 05/25/23 18:01 IMPRESSION: No acute radiographic findings. All radiology interpretation(s) finalized by discharge Discharge Plan Discharge Patient Disposition: Home Clinical Impression: Muscle strain of right knee Qualifiers: Encounter type: initial encounter Qualified Code(s): S86.911A - Strain of unspecified muscle(s) and tendon(s) at lower leg level, right leg, initial encounter Condition: Stable Prescriptions: New ketorolac 10 mg tablet 10 mg PO Q8H PRN (Reason: pain) Qty: 60 0RF No Action omeprazole 40 mg capsule,delayed release(DR/EC) 40 mg PO DAILY folic acid 1 mg tablet 1 mg PO DAILY Qty: 90 3RF diclofenac sodium 1 % gel 2 g topical QID Qty: 100 2RF Rx Instructions: apply to affected area as needed Enbrel 50 mg/mL (1 mL) syringe See Rx Instructions .ROUTE .COMPLEX Qty: 4 3RF Dose Instruction: INJECT 50MG SUBCUTANEOUSLY EVERY SEVEN DAYS Rx Instructions: INJECT 50MG SUBCUTANEOUSLY EVERY SEVEN DAYS aspirin [Adult Aspirin Regimen] 81 mg tablet,delayed release (DR/EC) 81 mg PO DAILY alendronate 70 mg tablet See Rx Instructions .ROUTE .COMPLEX Qty: 12 1RF Dose Instruction: TAKE 1 TABLET BY MOUTH EVERY 7 DAYS Rx Instructions: TAKE 1 TABLET BY MOUTH EVERY 7 DAYS cholecalciferol (vitamin D3) 50 mcg (2,000 unit) tablet 2,000 unit PO .daily 90 Days Qty: 90 1RF Enbrel 50 mg/mL (1 mL) syringe See Rx Instructions .ROUTE .COMPLEX Qty: 4 3RF Dose Instruction: INJECT 50MG SUBCUTANEOUSLY EVERY SEVEN DAYS Rx Instructions: INJECT 50MG SUBCUTANEOUSLY EVERY SEVEN DAYS methotrexate sodium 2.5 mg tablet See Rx Instructions .ROUTE .COMPLEX Qty: 105 0RF Dose Instruction: TAKE 7 TABLETS BY MOUTH ONCE A WEEK Rx Instructions: TAKE 7 TABLETS BY MOUTH ONCE A WEEK Discharge Orders: Discharge ED (Routine); Ordered 05/25/23 Ordered By: Rubio Byrd Referrals: Javy Arguelles [Primary Care Provider] - Discharge Diet: Usual diet Discharge Activity: Increase activity as tolerated Patient Instructions: Knee Pain (ED) Activity Restrictions/Additional Instructions: Toradol as needed for pain. Gentle range of motion exercises. Ice for added relief. If you continue to have pain, follow-up with primary care for potential MRI. Otherwise, return with any new or concerning symptoms. 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 Marian Rodriguez Documented by User: Curt De La Rosa DO 05/31/23 14:15 HPI - Extremity Problem General: Chief complaint: Extremity Problem,Nontraumatic Stated complaint: right leg pain Time Seen by Provider: 05/25/23 17:06 PFSH ED PFSH: Medical History Villanueva's cyst of knee Shingles Immunization counseling Rheumatoid arthritis with rheumatoid factor Seropositive rheumatoid arthritis of multiple joints Seropositive rheumatoid arthritis High risk medication use Rheumatoid arthritis Surgical History Hx of hysterectomy History of cholecystectomy Family History Father Rheumatoid arthritis Grandfather Rheumatoid arthritis Grandmother Rheumatoid arthritis Family/Other Rheumatoid arthritis Denies family history of Diabetes Lupus CAD (coronary artery disease) Family history of premature coronary artery disease Hypertension Stroke Social History Smoking and tobacco/nicotine status: never used tobacco/nicotine Alcohol intake: never Substance/Drug Use: never Course Vital Signs: Vital signs: Vital Signs Temperature 98.1 F 05/25/23 19:13 Pulse Rate 68 05/25/23 19:13 Respiratory Rate 16 05/25/23 19:13 Blood Pressure 125/51 05/25/23 19:13 Pulse Oximetry 98 05/25/23 19:13 Oxygen Delivery Me thod Room Air 05/25/23 17:00 MDM - Extremity (Nontraumatic) Medical Decision Making This patient seen and evaluated in the emergency department today due to sudden onset of nontraumatic right leg pain. On arrival patient complaining of severe pain diffusely throughout the leg, stating it was worse in the knee. Vitals normal. Examination ultimately unremarkable, however she was diffusely tender to palpation of the right knee with proximal and distal extension. No skin changes, calf tenderness, popliteal space tenderness, palpable cord, and a negative Homans' sign. However, I ordered venous ultrasound to rule out DVT as patient noted she had a history, but this was negative. Subsequent x-ray of the knee on the right was also negative. I had previously given the patient a shot of Toradol, and upon recheck she states that she is essentially pain-free. I believe the patient's pain could potentially be due to to a muscle strain, however differential includes ruptured Villanueva's cyst, as she has a history of this on the left side. I will send her home with prescription for Toradol to take by mouth, and informed her that if she continues to have pain she can follow-up with her primary care to schedule an MRI. Return precautions are given and patient agrees with discharge home. Chart reviewed Lab Data Radiology Impressions Venous Duplex 05/25/23 17:18 IMPRESSION: No sonographic evidence of deep vein thrombosis. Knee X-Ray 05/25/23 18:01 IMPRESSION: No acute radiographic findings. Discharge Plan Discharge Patient Disposition: Home Clinical Impression: Muscle strain of right knee Qualifiers: Encounter type: initial encounter Qualified Code(s): S86.911A - Strain of unspecified muscle(s) and tendon(s) at lower leg level, right leg, initial encounter Condition: Stable Prescriptions: New ketorolac 10 mg tablet 10 mg PO Q8H PRN (Reason: pain) Qty: 60 0RF No Action omeprazole 40 mg capsule,delayed release(DR/EC) 40 mg PO DAILY folic acid 1 mg tablet 1 mg PO DAILY Qty: 90 3RF diclofenac sodium 1 % gel 2 g topical QID Qty: 100 2RF Rx Instructions: apply to affected area as needed Enbrel 50 mg/mL (1 mL) syringe See Rx Instructions .ROUTE .COMPLEX Qty: 4 3RF Dose Instruction: INJECT 50MG SUBCUTANEOUSLY EVERY SEVEN DAYS Rx Instructions: INJECT 50MG SUBCUTANEOUSLY EVERY SEVEN DAYS aspirin [Adult Aspirin Regimen] 81 mg tablet,delayed release (DR/EC) 81 mg PO DAILY alendronate 70 mg tablet See Rx Instructions .ROUTE .COMPLEX Qty: 12 1RF Dose Instruction: TAKE 1 TABLET BY MOUTH EVERY 7 DAYS Rx Instructions: TAKE 1 TABLET BY MOUTH EVERY 7 DAYS cholecalciferol (vitamin D3) 50 mcg (2,000 unit) tablet 2,000 unit PO .daily 90 Days Qty: 90 1RF Enbrel 50 mg/mL (1 mL) syringe See Rx Instructions .ROUTE .COMPLEX Qty: 4 3RF Dose Instruction: INJECT 50MG SUBCUTANEOUSLY EVERY SEVEN DAYS Rx Instructions: INJECT 50MG SUBCUTANEOUSLY EVERY SEVEN DAYS methotrexate sodium 2.5 mg tablet See Rx Instructions .ROUTE .COMPLEX Qty: 105 0RF Dose Instruction: TAKE 7 TABLETS BY MOUTH ONCE A WEEK Rx Instructions: TAKE 7 TABLETS BY MOUTH ONCE A WEEK Discharge Orders: Discharge ED (Routine); Ordered 05/25/23 Ordered By: Rubio Byrd Referrals: Javy Arguelles [Primary Care Provider] - Discharge Diet: Usual diet Discharge Activity: Increase activity as tolerated Patient Instructions: Knee Pain (ED) Activity Restrictions/Additional Instructions: Toradol as needed for pain. Gentle range of motion exercises. Ice for added relief. If you continue to have pain, follow-up with primary care for potential MRI. Otherwise, return with any new or concerning symptoms. 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
[2023-05-25] MEDS: ketorolac 60 mg/2 mL INJ IM (17:32)
--- NOTE | 2023-05-25 18:01 | XRR_ITS ---
PROCEDURE INFORMATION: Exam: XR Right Knee Exam date and time: 05/25/2023 6:09 PM Age: 73 years old Clinical indication: Pain; Knee; Right; Additional info: Knee pain TECHNIQUE: Imaging protocol: Radiologic exam of the right knee. Views: 3 views. COMPARISON: [place] [id number] 05/25/2023 5:38 PM FINDINGS: Bones/joints: No radiographic evidence of acute fracture or dislocation. Alignment anatomic. Joint spaces preserved. No significant effusion. Soft tissues: Mild soft tissue swelling. XR/XR knee RT 3V* [id number] IMPRESSION: No acute radiographic findings.
[2023-05-25 19:13] VITALS: BP 125/51; PULSE 68; RESP 16; TEMP 36.7; O2SAT 98
== END 2023-05-25 19:12 | disposition home or self-care (01) ==
PROVIDERS: Emergency Provider Physician Assistant; PCP Family Medicine
DX: S86.911A Strain of unspecified muscle(s) and tendon(s) at lower leg level, right leg, initial encounter (principal); Z79.82 Long term (current) use of aspirin; X58.XXXA Exposure to other specified factors, initial encounter
CPT/HCPCS: 73562; 93971; 96372; 99284; J1885

== ENCOUNTER 2023-08-07 19:14 | Emergency (ER) | payer MEDICARE, OTHER, SELFPAY ==
--- NOTE | 2023-08-07 19:20 | XRR_ITS ---
PROCEDURE INFORMATION: Exam: XR Chest Exam date and time: 08/07/2023 7:53 PM Age: 73 years old Clinical indication: Other: Syncope TECHNIQUE: Imaging protocol: Radiologic exam of the chest. Views: 1 view. COMPARISON: CR XR chest 2V* [id number] 01/08/2019 2:59 PM FINDINGS: Lungs: Unremarkable. No consolidation. Pleural spaces: Unremarkable. No pleural effusion. No pneumothorax. Heart/Mediastinum: Unremarkable. No cardiomegaly. Bones/joints: Unremarkable. XR/XR chest 1V portable [id number] IMPRESSION: No significant findings.
--- NOTE | 2023-08-07 19:21 | ECG_ITS ---
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 Measurements Intervals [place] Rate: 70 P: 63 NM: 175 QRS: 44 QRSD: 94 T: 60 QT: 424 QTc: 458 Interpretive Statements SINUS RHYTHM WITH OCCASIONAL VENTRICULAR PREMATURE COMPLEXES LOW QRS VOLTAGE IN PRECORDIAL LEADS [QRS DEFLECTION < 1.0 mV IN CHEST LEADS] No previous ECG available for comparison Electronically Signed On 08-08-2023 0:02:16 CDT by Phillip Simmons M.D. [email or web address]
[2023-08-07 19:23] VITALS: BP 129/59; PULSE 72; RESP 24; O2SAT 98; BMI 30.4
[2023-08-07 19:37] LABS: Basophils % 0.5 %; Eosinophils # 0.2 10^3/uL (0.0-0.8); Eosinophils % 4.6 %; Hematocrit 34.3 % (36-47); Lymphocytes # 1.5 10^3/uL (0.8-4.8); Lymphocytes % 35.1 %; Mean Corpuscular HGB Conc 32.1 g/dL (30-55); Mean Corpuscular Hemoglobin 28.9 pg (27-33); Mean Platelet Volume 9.9 fL (7.4-10.4); Monocytes # 0.6 10^3/uL (0.2-0.9); Neutrophils # 1.88 10^3/uL (1.8-7.7); Neutrophils % 45.6 %; Nucleated Red Blood Cells % 0 %; Platelet Count 156 10^3/cmm (157-399); Red Blood Count 3.81 10^6/uL (3.85-5.65); Red Cell Distribution Width 16.3 % (12.1-15.1); White Blood Count 4.13 10^3/uL (3.29-11.43)
--- NOTE | 2023-08-07 19:42 | W.ED.SYNCOPE ---
HPI - Syncope General: Chief Complaint: Syncope Stated Complaint: syncope Time Seen by Provider: 08/07/23 19:16 History of Present Illness: 73-year-old female with a history of rheumatoid arthritis who presents the emergency room by ambulance after having a syncopal event. She was at a . She started feeling lightheaded and passed out. She did not hit her head. She says this happens to her quite frequently. She had not had anything to eat today. EMS reports PVCs and a low blood pressure initially. She says she is feeling quite a bit better now. No chest pain. No shortness of breath. She currently has no nausea or vomiting. No abdominal pain. Review of Systems Narrative: Constitutional symptoms: Negative except as documented in HPI. Skin symptoms: Negative except as documented in HPI. Eye symptoms: Negative except as documented in HPI. ENMT symptoms: Negative except as documented in HPI. Respiratory symptoms: Negative except as documented in HPI. Cardiovascular symptoms: Negative except as documented in HPI. Gastrointestinal symptoms: Negative except as documented in HPI. Genitourinary symptoms: Negative except as documented in HPI. Musculoskeletal symptoms: Negative except as documented in HPI. Neurologic symptoms: Negative except as documented in HPI. Psychiatric symptoms: Negative except as documented in HPI. Endocrine symptoms: Negative except as documented in HPI. [facility] ED PFSH: Medical History Villanueva's cyst of knee Shingles Immunization counseling Rheumatoid arthritis with rheumatoid factor Seropositive rheumatoid arthritis of multiple joints Seropositive rheumatoid arthritis High risk medication use Rheumatoid arthritis Surgical History Hx of hysterectomy History of cholecystectomy Family History Father Rheumatoid arthritis Grandfather Rheumatoid arthritis Grandmother Rheumatoid arthritis Family/Other Rheumatoid arthritis Denies family history of Diabetes Lupus CAD (coronary artery disease) Family history of premature coronary artery disease Hypertension Stroke Social History Smoking and tobacco/nicotine status: never used tobacco/nicotine Alcohol intake: never Substance/Drug Use: never Physical Exam Narrative: EXAM NARRATIVE: General: Alert, no acute distress. Skin: Warm, dry. Head: Normocephalic, atraumatic. Neck: Supple, trachea midline. Eye: Extraocular movements are intact. Ears, nose, mouth and throat: mucosa moist. Cardiovascular: Regular, Normal peripheral perfusion. Respiratory: Lungs are clear to auscultation, respirations are non-labored, breath sounds are equal, Symmetrical chest wall expansion. Gastrointestinal: Soft, Nontender, Non distended, Normal bowel sounds. Musculoskeletal: Normal ROM, no deformity. Neurological: Alert and oriented, No focal neurological deficit observed. Psychiatric: Cooperative, appropriate mood & affect. Course Vital Signs: Vital signs: Vital Signs Pulse Rate 82 08/07/23 20:55 Respiratory Rate 24 H 08/07/23 19:23 Blood Pressure 117/56 08/07/23 20:55 Pulse Oximetry 98 08/07/23 19:23 Oxygen Delivery Me thod Room Air 08/07/23 19:23 MDM - Syncope Medical Decision Making Medical decision making: Differential diagnosis including but not limited to and based on the above HPI, review of systems and physical exam in this patient with syncope: Vasovagal, orthostatics hypotension, cardiac dysrhythmia, myocardial infarction, infection and hypotension, Orders placed to evaluate differential diagnosis based on the above differential, HPI and physical exam EKG: Time 1941. Rate 70. Normal sinus rhythm, No ST-T changes, frequent PVCs, normal DE & QRS intervals, This was reviewed and interpreted by myself the ER physician at 1944 Chest x-ray: No acute process. No infiltrate. No pneumothorax. No cardiomegaly. This was reviewed and interpreted by myself the ER physician. Lab Review: Laboratory results were reviewed and interpreted by myself the emergency room physician. Lab work is unremarkable. No leukocytosis. No significant anemia. No renal failure. Cardiac markers are negative. I reviewed the patient's medical record. Reexamination: Patient remained stable. She says she feels fine. No increased work of breathing. No dysrhythmias. No altered mental status. No focal motor deficits. Assessment and plan: Syncope - Discharged home - Discussed findings and plan with patient. Answered any questions. - All laboratory values were reviewed and interpreted personally by myself, the ER physician - All imaging was reviewed and interpreted personally by myself, the ER physician. - Evaluation and treatment of this problem were appropriate in the emergency setting Lab Data 08/07/23 19:31 08/07/23 19:31 Radiology Impressions Chest X-Ray 08/07/23 19:20 IMPRESSION: No significant findings. Laboratory Results WBC 4.13 10^3/uL (3.29-11.43) 08/07/23 19: RBC 3.81 10^6/uL (3.85-5.65) L 08/07/23 19:31 Hgb 11.00 g/dL (11.27-16.99) L 08/07/23 19:31 Hct 34.3 % (36-47) L 08/07/23 19: MCV 90.0 fl (85-98) 08/07/23 19:31 MCH 28.9 pg (27-33) 08/07/23 19: MCHC 32.1 g/dL (30-55) 08/07/23 19: RDW 16.3 % (12.1-15.1) H 08/07/23 19: Plt Count 156 10^3/cmm (157-399) L 08/07/23 19: MPV 9.9 fL (7.4-10.4) 08/07/23 19: Neut % (Auto) 45.6 % 08/07/23 19:31 Lymph % (Auto) 35.1 % 08/07/23 19: [place] % (Auto) 14.0 % 08/07/23 19: Eos % (Auto) 4.6 % 08/07/23 19: Baso % (Auto) 0.5 % 08/07/23 19: Neut # (Auto) 1.88 10^3/uL (1.8-7.7) 08/07/23 19: Lymph # (Auto) 1.5 10^3/uL (0.8-4.8) 08/07/23 19:31 [place] # (Auto) 0.6 10^3/uL (0.2-0.9) 08/07/23 19: Eos # (Auto) 0.2 10^3/uL (0.0-0.8) 08/07/23 19: Baso # (Auto) 0.0 10^3/uL (0.0-0.1) 08/07/23 19:31 Nucleated RBC % (auto) 0 % 08/07/23 19:31 Nucleated RBCs # 0.0 /100WBC 08/07/23 19:31 Sodium 139 mmol/L (136-145) 08/07/23 19:31 Potassium 3.6 mmol/L (3.5-5.1) 08/07/23 19:31 Chloride 109 mmol/L (98-107) H 08/07/23 19:31 Carbon Dioxide 20 mmol/L (22-29) L 08/07/23 19:31 Anion Gap 13.6 (5-19) 08/07/23 19:31 BUN 10 mg/dL (8-23) 08/07/23 19:31 Creatinine 0.7 mg/dL (0.5-0.9) 08/07/23 19:31 GFR Calculation Not Reportable 08/07/23 19:31 Glucose 102 mg/dL (65-115) 08/07/23 19:31 Calculated Osmolality 287 mOsm/kg (285-295) 08/07/23 19:31 Calcium 8.2 mg/dL (8.5-10.5) L 08/07/23 19:31 Total Bilirubin 0.3 mg/dL (0.15-1.2) 08/07/23 19:31 AST 15 U/L (0-32) 08/07/23 19:31 ALT 7 U/L (0-33) 08/07/23 19:31 Alkaline Phosphatase 79 U/L (35-105) 08/07/23 19:31 Troponin T Baseline 7 ng/L (0-10) 08/07/23 19:31 Total Protein 6.3 g/dL (6.6-8.7) L 08/07/23 19:31 Albumin 3.4 g/dL (3.5-5.2) L 08/07/23 19:31 Globulin 2.9 g/dL (1.3-4.6) 08/07/23 19:31 All radiology interpretation(s) finalized by discharge Discharge Plan Discharge Patient Disposition: Home Clinical Impression: Syncope Qualifiers: Syncope type: unspecified Qualified Code(s): R55 - Syncope and collapse Condition: Stable Prescriptions: No Action omeprazole 40 mg capsule,delayed release(DR/EC) 40 mg PO DAILY folic acid 1 mg tablet 1 mg PO DAILY Qty: 90 3RF diclofenac sodium 1 % gel 2 g topical QID Qty: 100 2RF Rx Instructions: apply to affected area as needed Enbrel 50 mg/mL (1 mL) syringe See Rx Instructions .ROUTE .COMPLEX Qty: 4 3RF Dose Instruction: INJECT 50MG SUBCUTANEOUSLY EVERY SEVEN DAYS Rx Instructions: INJECT 50MG SUBCUTANEOUSLY EVERY SEVEN DAYS aspirin [Adult Aspirin Regimen] 81 mg tablet,delayed release (DR/EC) 81 mg PO DAILY alendronate 70 mg tablet See Rx Instructions .ROUTE .COMPLEX Qty: 12 1RF Dose Instruction: TAKE 1 TABLET BY MOUTH EVERY 7 DAYS Rx Instructions: TAKE 1 TABLET BY MOUTH EVERY 7 DAYS cholecalciferol (vitamin D3) 50 mcg (2,000 unit) tablet 2,000 unit PO .daily 90 Days Qty: 90 1RF Enbrel 50 mg/mL (1 mL) syringe See Rx Instructions .ROUTE .COMPLEX Qty: 4 3RF Dose Instruction: INJECT 50MG SUBCUTANEOUSLY EVERY SEVEN DAYS Rx Instructions: INJECT 50MG SUBCUTANEOUSLY EVERY SEVEN DAYS methotrexate sodium 2.5 mg tablet See Rx Instructions .ROUTE .COMPLEX Qty: 105 0RF Dose Instruction: TAKE 7 TABLETS BY MOUTH ONCE A WEEK Rx Instructions: TAKE 7 TABLETS BY MOUTH ONCE A WEEK ketorolac 10 mg tablet 10 mg PO Q8H PRN (Reason: pain) Qty: 60 0RF Discharge Orders: Discharge ED (Routine); Ordered 08/07/23 Ordered By: Malissa Bedoya Referrals: Javy Arguelles [Primary Care Provider] - 1-3 days Discharge Diet: Usual diet Discharge Activity: Increase activity as tolerated Patient Instructions: Syncope (ED) Activity Restrictions/Additional Instructions: Thank you for choosing [facility] for your healthcare needs today. Please realize this is an emergency room and that we are providing you with a medical screening exam and this may not be complete and all inclusive of all the testing and or work up that you may need to determine your ailment or severity of your illness. You have been screened and evaluated and felt safe for discharge. Health conditions do change or evolve sometimes and as such it is important that you follow up with your Primary Doctor to be re checked, 3-5 days is a general good time frame for follow up. You are always welcome to return to the ED for re assessment if your symptoms are worsening or you have new concerns Coding Level of Care Code ED Journeyman [employer] for Marian Rodriguez
[2023-08-07 19:56] LABS: Alanine Aminotransferase 7 U/L (0-33); Albumin Level 3.4 g/dL (3.5-5.2); Alkaline Phosphatase 79 U/L (35-105); Anion Gap 13.6 (5-19); Aspartate Amino Transferase 15 U/L (0-32); Blood Urea Nitrogen 10 mg/dL (8-23); Calcium 8.2 mg/dL (8.5-10.5); Carbon Dioxide 20 mmol/L (22-29); Chloride 109 mmol/L (98-107); Creatinine Clr Calc Pharmacy 63.7892; Globulin 2.9 g/dL (1.3-4.6); Glucose 102 mg/dL (65-115); Osmolality Calculated 287 mOsm/kg (285-295); Potassium 3.6 mmol/L (3.5-5.1); Sodium 139 mmol/L (136-145); Total Bilirubin 0.3 mg/dL (0.15-1.2); Total Protein 6.3 g/dL (6.6-8.7)
[2023-08-07 20:09] LABS: Slide Review Slide Review Perform
[2023-08-07 20:38] LABS: Troponin(5th) Baseline 7 ng/L (0-10)
[2023-08-07 20:55] VITALS: BP 110/69; BP 116/65; BP 117/56; PULSE 81; PULSE 82; PULSE 91
== END 2023-08-07 21:14 | disposition home or self-care (01) ==
PROVIDERS: Emergency Provider Emergency Medicine; PCP Family Medicine
DX: R55 Syncope and collapse (principal); Z79.82 Long term (current) use of aspirin
CPT/HCPCS: 36415; 71045; 80053; 84484; 85025; 93005; 99285

== ENCOUNTER → 2023-10-15 12:39 | Outpatient (BNVA) | payer MEDICARE, OTHER, SELFPAY | PROVIDERS: PCP Family Medicine; Visit Provider Internal Medicine Rheumatology | DX: M05.79 Rheumatoid arthritis with rheumatoid factor of multiple sites without organ or systems involvement (principal); Z79.899 Other long term (current) drug therapy; M85.80 Other specified disorders of bone density and structure, unspecified site; Z71.85 Encounter for immunization safety counseling; Z96.652 Presence of left artificial knee joint | CPT/HCPCS: 99214 ==

== ENCOUNTER 2024-07-16 13:29 | Outpatient (CLI) | payer MEDICARE, OTHER, SELFPAY ==
[2024-07-16 13:59] LABS: Basophils % 0.3 %; Eosinophils # 0.3 10^3/uL (0.0-0.8); Eosinophils % 7.1 %; Hematocrit 36.1 % (36-47); Lymphocytes # 2.1 10^3/uL (0.8-4.8); Lymphocytes % 55.3 %; Mean Corpuscular HGB Conc 33.8 g/dL (30-55); Mean Corpuscular Hemoglobin 30.3 pg (27-33); Mean Corpuscular Volume 89.8 fl (85-98); Mean Platelet Volume 9.2 fL (7.4-10.4); Monocytes # 0.5 10^3/uL (0.2-0.9); Monocytes % 12.4 %; Neutrophils % 24.9 %; Nucleated Red Blood Cells % 0 %; Platelet Count 163 10^3/cmm (157-399); Red Blood Count 4.02 10^6/uL (3.85-5.65); Red Cell Distribution Width 17.8 % (12.1-15.1)
[2024-07-16 14:18] LABS: Alanine Aminotransferase 11 U/L (0-33); Albumin Level 3.9 g/dL (3.5-5.2); Alkaline Phosphatase 85 U/L (35-105); Aspartate Amino Transferase 23 U/L (0-32); Globulin 3.8 g/dL (1.3-4.6); Total Bilirubin 0.4 mg/dL (0.15-1.2); Total Protein 7.7 g/dL (6.6-8.7)
[2024-07-16 14:44] LABS: Erythrocyte Sedimentation Rate 36 mm/hr (0-15)
[2024-07-16 14:58] LABS: Neutrophils # 0.95 10^3/uL (1.8-7.7)
[2024-07-16 14:59] LABS: Slide Review Slide Review Perform
== END 2024-07-16 13:30 | disposition home or self-care (01) ==
PROVIDERS: PCP Family Medicine; Visit Provider Internal Medicine Rheumatology
DX: M05.79 Rheumatoid arthritis with rheumatoid factor of multiple sites without organ or systems involvement (principal); Z79.899 Other long term (current) drug therapy
CPT/HCPCS: 36415; 80076; 82565; 85025; 85651; 86140

== ENCOUNTER 2024-07-31 13:52 | Outpatient (CLI) | payer MEDICARE, OTHER, SELFPAY ==
[2024-07-31 14:15] LABS: Basophils % 0.5 %; Eosinophils # 0.5 10^3/uL (0.0-0.8); Eosinophils % 11.5 %; Lymphocytes % 51.1 %; Mean Corpuscular HGB Conc 32.2 g/dL (30-55); Mean Corpuscular Hemoglobin 29.5 pg (27-33); Mean Corpuscular Volume 91.6 fl (85-98); Mean Platelet Volume 9.2 fL (7.4-10.4); Monocytes # 0.5 10^3/uL (0.2-0.9); Monocytes % 11.5 %; Neutrophils # 0.99 10^3/uL (1.8-7.7); Neutrophils % 25.1 %; Nucleated Red Blood Cells % 0 %; Platelet Count 161 10^3/cmm (157-399); Red Blood Count 4.04 10^6/uL (3.85-5.65); Red Cell Distribution Width 18.8 % (12.1-15.1); White Blood Count 3.93 10^3/uL (3.29-11.43)
[2024-07-31 15:00] LABS: Slide Review Slide Review Perform
== END 2024-07-31 13:53 | disposition home or self-care (01) ==
PROVIDERS: PCP Family Medicine; Visit Provider Internal Medicine Rheumatology
DX: M05.9 Rheumatoid arthritis with rheumatoid factor, unspecified (principal); Z79.899 Other long term (current) drug therapy; D72.819 Decreased white blood cell count, unspecified
CPT/HCPCS: 36415; 85025

== ENCOUNTER → 2024-10-05 13:18 | Outpatient (BNVA) | payer MEDICARE, OTHER, SELFPAY | PROVIDERS: PCP Family Medicine; Visit Provider Internal Medicine Rheumatology | DX: M05.79 Rheumatoid arthritis with rheumatoid factor of multiple sites without organ or systems involvement (principal); M85.80 Other specified disorders of bone density and structure, unspecified site; Z78.0 Asymptomatic menopausal state; Z79.899 Other long term (current) drug therapy; Z71.85 Encounter for immunization safety counseling | CPT/HCPCS: 99214 ==